=== PATIENT | female | born 1980 | race African-American/Black ===

== ENCOUNTER 2016-10-11 09:25 | Emergency (ER) | payer BC, OTHER ==
[2016-10-11 09:45] VITALS: BP 118/72; PULSE 70; TEMP 98.3; BMI 26.5
--- NOTE | 2016-10-11 10:30 | PDOC ---
History of Present Illness - General Chief Complaint: Lightheaded Stated Complaint: DIZZINESS Time Seen by Provider: 10/11/16 09:52 History Source: Patient Exam Limitations: No Limitations - History of Present Illness Initial Comments: 10/11/16 10:25 This patient is a 35-year-old female who presents to the emergency department with a complaint of dizziness. Patient states her symptoms began several days ago. She noticed that if she gets up too fast she feels dizzy. Today while at work she felt like she was going to pass out. She denies fevers or chills. She denies nausea, vomiting, diarrhea. She denies chest pain or palpitation. She denies head trauma. Patient denies headache. She of her ear. She was seen by her primary care physician who referred her to a specialist. Patient has not followed up with a specialist. She has no known history of anemia. She may have seasonal allergies, she has noted cough, itchiness, eye itching particularly when she goes outside PMH: denies PSH: Denies Meds: denies ALL: NKDA Social: denies alcohol, drug, cigarettes GENERAL/CONSTITUTIONAL: No: fever, chills, weakness, loss of appetite. HEAD, EYES, EARS, NOSE AND THROAT: No: change in vision, ear pain, discharge, sore throat, throat swelling. CARDIOVASCULAR: No: chest pain, lightheadedness, palpitations, syncope RESPIRATORY: No: cough, shortness of breath, wheezing, hemoptysis, stridor. GASTROINTESTINAL: No: nausea, vomiting, diarrhea, abdominal cramping, rectal bleeding, constipation. GENITOURINARY: No: dysuria, hematuria, frequency, urgency, flank pain. MUSCULOSKELETAL: No: back pain, neck pain, joint pain, muscle swelling or pain SKIN AND BREASTS: No: lesions, pallor, rash or easy bruising. NEUROLOGIC: No: headache, vertigo, paresthesias, weakness ENDOCRINE: No: unexplained weight gain or loss HEMATOLOGIC/LYMPHATIC: No: anemia, easy bleeding, swelling nodes. GENERAL: The patient is in no acute distress. HEAD: Normal with no signs of trauma. EYES: PERRLA, EOMI, sclera anicteric, conjunctiva clear. ENT: Ears normal, nares patent, oropharynx clear without exudates. Moist mucous membranes. NECK: Normal range of motion, supple without lymphadenopathy, JVD, or masses. LUNGS: Breath sounds equal, clear to auscultation bilaterally. No wheezes, and no crackles. HEART:Regular rate and rhythm, normal S1 and S2 without murmur, rub or gallop. ABDOMEN: Soft, nontender, normoactive bowel sounds. No guarding, no rebound. No masses palpable. EXTREMITIES: Normal range of motion, no edema. No clubbing or cyanosis. No erythema, or tenderness. NEUROLOGICAL: Cranial nerves II through XII grossly intact. Normal speech. No focal neurological deficits. No nystagmus MUSCULOSKELETAL: Back non-tender to palpation, no CVA tenderness SKIN: Warm, Dry, normal turgor, no rashes or lesions noted. Past History - Past Medical History Allergies/Adverse Reactions: Allergies Allergy/AdvReac Type Severity Reaction Status Date / Time No Known Allergies Allergy Verified 10/11/16 09:40 Home Medications: Ambulatory Orders NK [No Known Home Medication] 05/18/14 Thyroid Disease: No - Reproductive History (#): 5 Para: 3 Cervical CA: No Dysfunctional Uterine Bleeding: No Ectopic : No Endometrial CA: No Polycystic Ovaries: No Tubal Ligation: No Spontaneous : 1 - Psycho/Social/Smoking Cessation Hx Anxiety: No Suicidal Ideation: No Smoking History: Current some day smoker Have you smoked in the past 12 months: Yes Number of Cigarettes Smoked Daily: 1 Information on smoking cessation initiated: Yes 'Breaking Loose' booklet given: 12/02/15 Hx Alcohol Use: Yes (OCCASIONAL) Drug/Substance Use Hx: Yes (MARIJUANA) Substance Use Type: Alcohol, Marijuana *Physical Exam - Vital Signs Last Vital Signs Temp Pulse Resp BP Pulse Ox 98.3 F 70 15 118/72 99 10/11/16 09:38 10/11/16 09:38 10/11/16 09:38 10/11/16 09:38 10/11/16 09:38 Heart Score/ECG Review #1 ECG reviewed & interpreted by me at: 19:10 10/11/16 19:10 Twelve-lead EKG was performed and reviewed by me. There is normal sinus rhythm with a bradycardiac rate of 55bpm. The axis is normal. The intervals are normal. T wave inversion III, flattening aVF ED Treatment Course - LABORATORY CBC & Chemistry Diagram: 10/11/16 10:45 10/11/16 10:45 Medical Decision Making - Medical Decision Making 10/11/16 10:30 Dizziness: Anemia, orthostatic hypotension/dizziness, vertigo Reassess. I have discussed with patient strategies for changing her position which involves slowly changing position 10/11/16 11:49 Laboratory Tests 10/11/16 10/11/16 10:30 10:45 WBC 3.3 L D Hgb 14.1 Hct 41.5 Plt Count 271 D Urine HCG, Qual Negative 10/11/16 12:14 Laboratory Tests 10/11/16 10:45 Sodium 138 Potassium 3.2 L Chloride 103 Carbon Dioxide 29 H Anion Gap 6 L BUN 5 L D Creatinine 0.7 Random Glucose 79 10/11/16 12:53 Laboratory Tests 10/11/16 10:45 Troponin I < 0.03 L Clinical impression: Dizziness Orthostatic *DC/Admit/Observation/Transfer Diagnosis at time of Disposition: Orthostatic dizziness - Discharge Dispostion Disposition: HOME Condition at time of disposition: Stable Admit: No - Referrals Referrals: Candace Collier MD [Primary Care Provider] - - Patient Instructions Printed Discharge Instructions: Dizziness, Nonvertigo, DI for Dizziness- Nonvertigo, DI for Orthostatic Hypotension Additional Instructions: Thank you for coming in to the ER today Please review your labs Please follow up with your primary care physician Please also be sure to follow up with the ENT specialist as we discussed Please return to the ER for any other concerns or complaints - Post Discharge Activity Work/School Note: Back to Work
[2016-10-11 11:14] LABS: BASOPHIL 1.7 % (0-2.0); MCH 32.2 pg (25.7-33.7); MEAN CELL VOLUME 94.6 fl (80-96); MEAN PLT VOLUME 8.9 fl (7.5-11.1); NEUTROPHILS 31.7 % (42.8-82.8); PLATELET COUNT 271 K/MM3 (134-434); RDW 12.4 % (11.6-15.6); WHITE BLOOD COUNT 3.3 K/mm3 (4.0-10.8)
[2016-10-11 11:46] LABS: CPK(DFH) 96 IU/L (26-140)
[2016-10-11 11:47] LABS: ALBUMIN 3.6 g/dl (3.5-5.0); ALK PHOS 39 U/L (32-92); ANION GAP 6 (8-16); BILIRUBIN,TOTAL 1.1 mg/dl (0.2-1.0); CALCIUM 9.1 mg/dl (8.4-10.2); CO2 29 mmol/L (22-28); CREATININE 0.7 mg/dl (0.6-1.3); GLUCOSE,RANDOM 79 mg/dl (74-106); SGOT/AST 14 U/L (10-42); TOT PROT 6.9 g/dl (6.4-8.3)
[2016-10-11 12:25] LABS: SGPT/ALT < 9 U/L (10-40)
[2016-10-11 12:30] LABS: TROPONIN I (DFP) < 0.03 ng/ml (0.03-0.50)
--- NOTE | 2016-10-12 11:55 | EKG ---
Test Reason : Blood Pressure : / mmHG Vent. Rate : 055 BPM Atrial Rate : 055 BPM P-R Int : 162 ms QRS Dur : 082 ms QT Int : 414 ms P-R-T Axes : 035 053 -18 degrees QTc Int : 396 ms SINUS BRADYCARDIA NONSPECIFIC T WAVE ABNORMALITY ABNORMAL ECG WHEN COMPARED WITH ECG OF 02-MAR-2014 16:56, NO SIGNIFICANT CHANGE WAS FOUND Confirmed by KOBE LOUIE, DONALD ([id number]) on 10/12/2016 11:54:45 AM Referred By: PRABHU Confirmed By:DONALD BULLOCK MD
== END 2016-10-11 12:53 | disposition home or self-care (01) ==
LOC: FER 09:25
DX: R42 Dizziness and giddiness (principal); F17.210 Nicotine dependence, cigarettes, uncomplicated
CPT/HCPCS: 36415; 80053; 82550; 84484; 84703; 85025; 93005; 99282-25

== ENCOUNTER 2017-01-04 12:44 | Emergency (ER) | payer OTHER ==
[2017-01-04 12:58] VITALS: TEMP 98.8; BMI 27.4
[2017-01-04] MEDS ORDERED: SODIUM CHLORIDE 1,000 ML IV ONE (13:01)
[2017-01-04] MEDS ORDERED: KETOROLAC TROMETHAMINE 30 MG/1 ML VIAL IVPUSH ONE (13:01)
[2017-01-04 13:05] LABS: PH,URINE 7.5 (4.5-8); URINE APPEARANCE Clear; URINE BILIRUBIN Negative (NEGATIVE); URINE BLOOD Negative (NEGATIVE); URINE COLOR YELLOW; URINE GLUCOSE (UA) Negative (NEGATIVE); URINE KETONE Negative (NEGATIVE); URINE LEUK ESTERASE Negative (NEGATIVE); URINE NITRITE Negative (NEGATIVE); URINE PROTEIN Negative (NEGATIVE)
--- NOTE | 2017-01-04 13:09 | PDOC ---
History of Present Illness - General Chief Complaint: Pain, Acute Stated Complaint: RIGHT GROIN LOWER QUADRANT PAIN FOR 3 DAYS Time Seen by Provider: 01/04/17 12:48 History Source: Patient Exam Limitations: No Limitations - History of Present Illness Travel History: No Initial Comments: 01/04/17 13:04 36y F no pmhx presents wiht complaint of RLQ pain. The pt states she was having intermittent RLQ for the past 3 days, was mild at first, and intermittent, cramping, non radiating, she thought there was some association to movement as she would feel it when she sat down. She denies any fever/chills, nausea/ vomiting, diarrhea, dysuria, vaginal bleeding, frequency. She notes her urine seems darker than usual. Pt denies ever feeling these sypmtoms in the past. No recent injuries, heavy lifting. LMP early Aug Past History - Past Medical History Allergies/Adverse Reactions: Allergies Allergy/AdvReac Type Severity Reaction Status Date / Time No Known Allergies Allergy Verified 01/04/17 12:45 Home Medications: Ambulatory Orders NK [No Known Home Medication] 01/04/17 Thyroid Disease: No - Reproductive History (#): 5 Para: 3 Cervical CA: No Dysfunctional Uterine Bleeding: No Ectopic : No Endometrial CA: No Polycystic Ovaries: No Tubal Ligation: No Spontaneous : 1 - Psycho/Social/Smoking Cessation Hx Anxiety: No Suicidal Ideation: No Smoking History: Current some day smoker Have you smoked in the past 12 months: Yes Number of Cigarettes Smoked Daily: 1 Information on smoking cessation initiated: Yes 'Breaking Loose' booklet given: 01/04/17 Hx Alcohol Use: Yes Drug/Substance Use Hx: Yes (MARIJUANA) Substance Use Type: Alcohol, Marijuana Review of Systems - Review of Systems Able to Perform ROS?: Yes Comments:: 01/04/17 13:07 Constitutional - no reported Fever, Chills, HEENT: no reported vision changes, sore throat Respiratory: no reported cough, sob, hemoptysis Cardiac: no reported chest pain, palpitations, light headedness, leg swelling Abd/GI: +abd pain, no reported nausea, vomiting, blood per rectum, melena, diarrhea : no reported dysuria, frequency, discharge Musculskelatal - no reported back pain, joint swelling skin - no reported bruising, erythema, rash neurological: no reported headache, numbness, focal weakness, tingling, ataxia, hematologic: no reported anemia, easy bruising, easy bleeding *Physical Exam - Vital Signs Last Vital Signs Temp Pulse Resp BP Pulse Ox 98.8 F 73 16 113/68 100 01/04/17 12:45 01/04/17 12:45 01/04/17 12:45 01/04/17 12:45 01/04/17 12:45 - Physical Exam Comments: 01/04/17 13:09 GENERAL: The patient is awake, alert, and fully oriented, Nontoxic - in no acute distress. HEAD: Normocephalic, atraumatic. EYES: extraocular movements intact, sclera anicteric, conjunctiva clear. ENT: Normal voice, Moist mucous membranes. NECK: Normal range of motion, supple LUNGS: Breath sounds equal, clear to auscultation bilaterally. No wheezes, no rhonchi, no rales. HEART: Regular rate and rhythm, normal S1 and S2 without murmur, rub or gallop. ABDOMEN: Soft, nontender, normoactive bowel sounds. No guarding, no rebound. . No CVA tenderness EXTREMITIES: Normal range of motion, no edema. No clubbing or cyanosis. No cords, erythema, or tenderness. NEUROLOGICAL: No facial assymetry, Normal speech, PSYCH: Normal mood, normal affect. SKIN: Warm, Dry, normal turgor, ED Treatment Course - LABORATORY CBC & Chemistry Diagram: 01/04/17 13:10 01/04/17 13:10 Medical Decision Making - Medical Decision Making 01/04/17 13:09 36y F presenting with RLQ/R adnexal pain w/o associated n/v, diarrhea, urinary sypmtoms, f/c. on exam pt well appearing, abd is soft nontender, unable to reproduce the calvin using ambualtion, hip flexion suspect possible kdiney stone, ovarian cyst/torsion vs msk, /ectopic will ck ua, , cmp, cbc will give toradol will reassess 01/04/17 15:56 pts labs reviewed +UHCG, beta was 5100 US shows gestational sac with yolk sac w/o pole. there is signs of a mild diltation of right fallopian tube an d possible left, with small amount of free fluid the pt denies any pain currently, abd is soft nontender. will d/w dr. Hope, anticipate repeat hcg / US fu in 72 hrs 01/04/17 16:[address] Hope - states that as long as pt is asypmtomatic, she can follow up with her segment block layer in [facility] or return here for repeat HCG/US in 72 hrs. Pt is currently asypmtmoatic w/o pain return precautions were discussed I discussed the physical exam findings, ancillary test results and final diagnoses with the patient. I answered all of the patient's questions. The patient was satisfied with the care received and felt comfortable with the discharge plan and treatment plan. The patient will call their primary care physician within 24 hours to arrange follow-up and will return to the Emergency Department with any new, persistent or worsening symptoms. *DC/Admit/Observation/Transfer Diagnosis at time of Disposition: Abdominal pain affecting - Discharge Dispostion Disposition: HOME Condition at time of disposition: Improved Admit: No - Referrals Referrals: Thad Hope MD [Staff Physician] - - Patient Instructions Printed Discharge Instructions: DI for Abdominal Pain -- Early Additional Instructions: You have an early , we can see what looks like an early preganncy in your uterus. However there was some fullness noted by radiology on your R fallopian tube. Please return here or go see your segment block layer in 48-72 hrs to repeat your blood work and ultrasound. If you have any recurrent abdominal pain, vaginal bleeding, fever/chills, or any other concerns, return to the hospital immediately for reassessment. Take vitamins daily. Print Language: NEPALI
[2017-01-04] MEDS ORDERED: KETOROLAC TROMETHAMINE 30 MG/1 ML VIAL ONE (13:14)
[2017-01-04 13:26] LABS: EOSINOPHIL 0.9 % (0-4.5); MCH 32.1 pg (25.7-33.7); MCHC 33.6 g/dl (32.0-36.0); MEAN CELL VOLUME 95.6 fl (80-96); MEAN PLT VOLUME 8.9 fl (7.5-11.1); PLATELET COUNT 339 K/MM3 (134-434); RDW 12.6 % (11.6-15.6)
[2017-01-04 13:37] LABS: ALK PHOS 31 U/L (32-92); ANION GAP 1 (8-16); BILIRUBIN,TOTAL 0.8 mg/dl (0.2-1.0); CALCIUM 9.2 mg/dl (8.4-10.2); CO2 27 mmol/L (22-28); CREATININE 0.7 mg/dl (0.6-1.3); GLUCOSE,RANDOM 89 mg/dl (74-106); SGOT/AST 15 U/L (10-42); TOT PROT 7.4 g/dl (6.4-8.3)
[2017-01-04 14:11] LABS: SGPT/ALT < 8 U/L (10-40)
[2017-01-04 16:02] VITALS: BP 98/68; PULSE 68
== END 2017-01-04 16:14 | disposition home or self-care (01) ==
LOC: FER 12:44
PROC: 3E0333Z Introduction of Anti-inflammatory into Peripheral Vein, Percutaneous Approach (ICD-10-PCS; principal; 2017-01-04)
PROC: 3E0337Z Introduction of Electrolytic and Water Balance Substance into Peripheral Vein, Percutaneous Approach (ICD-10-PCS; 2017-01-04)
DX: O26.891 Other specified pregnancy related conditions, first trimester (principal); Z3A.01 Less than 8 weeks gestation of pregnancy; R10.31 Right lower quadrant pain
CPT/HCPCS: 36415; 76801-TC; 80053; 81003; 84702; 84703; 85025; 99282-25

== ENCOUNTER 2017-01-13 16:38 | Emergency (ER) | payer OTHER ==
[2017-01-13 17:16] VITALS: BP 112/66; PULSE 61; TEMP 98.6; BMI 27.4
--- NOTE | 2017-01-13 17:32 | PDOC ---
History of Present Illness - General History Source: Patient Exam Limitations: No Limitations - History of Present Illness Initial Comments: 01/13/17 18:01 The patient is a 36 year old female 5 weeks , with no significant past medical history, but was seen in the ER on 01/04/17 and was found to have an intrauterine less than 5 weeks without a pole identified and mild dilation of the right fallopian tube. The patient was told to follow up with OBGYN Dr. Sal in 42-72 hours for a repeat beta HCG and ultrasound. The patient has not followed up with Dr. Sal yet and came to the ER today as she has persistent pain.She reports some suprapubic pain that feels like menstrual cramping. She has no vaginal bleeding, but notes some white discharge. Denies dysuria, hematuria, and any other urinary changes. Denies fever, chills, nausea, vomiting. Allergies: none reported <Анна Zuniga - Last Filed: 01/13/17 19:26> <Matt Mar - Last Filed: 01/13/17 21:32> - General Chief Complaint: Revisit, Lab Variance Stated Complaint: REVISIT FOR US & LAB Time Seen by Provider: 01/13/17 17:31 Past History <Анна Zuniga - Last Filed: 01/13/17 19:26> - Past Medical History Thyroid Disease: No - Reproductive History Is Patient Now?: Yes (#): 5 Para: 3 Cervical CA: No Dysfunctional Uterine Bleeding: No Ectopic : No Endometrial CA: No Polycystic Ovaries: No Tubal Ligation: No Spontaneous : 1 - Psycho/Social/Smoking Cessation Hx Anxiety: No Suicidal Ideation: No Smoking History: Current some day smoker Have you smoked in the past 12 months: Yes Number of Cigarettes Smoked Daily: 1 Information on smoking cessation initiated: Yes 'Breaking Loose' booklet given: 01/04/17 Hx Alcohol Use: Yes Drug/Substance Use Hx: Yes Substance Use Type: Alcohol, Marijuana <Matt Mar - Last Filed: 01/13/17 21:32> - Past Medical History Allergies/Adverse Reactions: Allergies Allergy/AdvReac Type Severity Reaction Status Date / Time No Known Allergies Allergy Verified 01/04/17 12:45 Home Medications: Ambulatory Orders NK [No Known Home Medication] 01/04/17 Review of Systems - Review of Systems Able to Perform ROS?: Yes Comments:: 01/13/17 18:01 GENERAL/CONSTITUTIONAL: No fever or chills. No weakness. HEAD, EYES, EARS, NOSE AND THROAT: No change in vision. No ear pain or discharge. No sore throat. CARDIOVASCULAR: No chest pain or shortness of breath. RESPIRATORY: No cough, wheezing, or hemoptysis. GASTROINTESTINAL: +suprapubic cramping. No nausea, vomiting, diarrhea or constipation. GENITOURINARY: +white vaginal discharge. No dysuria, frequency, or change in urination. MUSCULOSKELETAL: No joint or muscle swelling or pain. No neck or back pain. SKIN: No rash NEUROLOGIC: No headache, vertigo, loss of consciousness, or change in strength/ sensation. ENDOCRINE: No increased thirst. No abnormal weight change. HEMATOLOGIC/LYMPHATIC: No anemia, easy bleeding, or history of blood clots. ALLERGIC/IMMUNOLOGIC: No hives or skin allergy. <Анна Zuniga - Last Filed: 01/13/17 19:26> *Physical Exam - Vital Signs Last Vital Signs Temp Pulse Resp BP Pulse Ox 98.6 F 61 16 112/66 96 01/13/17 16:41 01/13/17 16:41 01/13/17 16:41 01/13/17 16:41 01/13/17 16:41 - Physical Exam Comments: 01/13/17 18:01 GENERAL: Awake, alert, and fully oriented, in no acute distress HEAD: No signs of trauma EYES: PERRLA, EOMI, sclera anicteric, conjunctiva clear ENT: Auricles normal inspection, hearing grossly normal, nares patent, oropharynx clear without exudates. Moist mucosa NECK: Normal ROM, supple, no lymphadenopathy, JVD, or masses LUNGS: Breath sounds equal, clear to auscultation bilaterally. No wheezes, and no crackles HEART: Regular rate and rhythm, normal S1 and S2, no murmurs, rubs or gallops ABDOMEN: Soft, nontender, normoactive bowel sounds. No guarding, no rebound. No masses EXTREMITIES: Normal range of motion, no edema. No clubbing or cyanosis. No cords, erythema, or tenderness NEUROLOGICAL: Normal speech, cranial nerves intact, negative pronator drift, 5/ 5 strength in all 4 extremities, normal sensation to light touch in all 4 extremities, normal cerebellar exam, normal gait, normal reflexes and tone SKIN: Warm, Dry, normal turgor, no rashes or lesions noted. PRIVACY ANALYST: External genitalia with clitoral peircing, othewise wnl, Os closed, no CMT , mild midline ttp, no adnexal ttp. Scant clearish white discharge in vaginal vault. <Анна Zuniga - Last Filed: 01/13/17 19:26> - Vital Signs Last Vital Signs Temp Pulse Resp BP Pulse Ox 98.6 F 61 16 112/66 96 01/13/17 16:41 01/13/17 16:41 01/13/17 16:41 01/13/17 16:41 01/13/17 16:41 <Matt Mar - Last Filed: 01/13/17 21:32> ED Treatment Course - LABORATORY CBC & Chemistry Diagram: 01/13/17 18:10 01/13/17 18:10 - RADIOLOGY Radiograph Interpretation: 01/13/17 19:26 EXAM#: TYPE/EXAM: RESULT: [id number] US/TRANSVAGINAL US PREG Transvaginal obstetrical ultrasound Clinical information given: , no pole seen on last ultrasound The study was performed utilizing transvaginal and transabdominal scanning. In comparison to a previous ultrasound study of 01/04/2017 interval development of a single viable intrauterine gestation is noted at approximately 5 weeks 5 days on the basis of crown-rump length. Embryonic cardiac rate 134 BPM. No subchorionic implantation bleed is seen. Development of a 2.3 cm right ovarian cyst is noted. The left ovary appears unremarkable. No free intraperitoneal fluid is seen. There is no obvious adnexal pathology. Impression: A single viable intrauterine gestation is noted at approximately 5 weeks 5 days as discussed above. Development of a 2.3 cm right ovarian cyst is noted probably representing a corpus luteum. Mild dilatation of the right fallopian tube and possible mild dilatation of the left fallopian tube described on the previous exam is difficult to appreciate on the current study. Correlation with follow up sonography may be performed. Reported By: Edenilson Smith MD 01/13/17 [id number] <Анна Zuniga - Last Filed: 01/13/17 19:26> - LABORATORY CBC & Chemistry Diagram: 01/13/17 18:10 01/13/17 18:10 <Matt Mar - Last Filed: 01/13/17 21:32> Medical Decision Making - Medical Decision Making 01/13/17 19:25 36yo F five weeks presents for persistent suprapubic abd cramping after a recent ED TVUS did not show a pole. Exam with mild midline tenderness over the uterus but closed os and no blood in vaginal vault. Likely threatened Ab vs pain of normal . -labs -beta HCG quant -TVUS -reassess Pt signed out to Dr. Layton for further management. <Matt Mar - Last Filed: 01/13/17 21:32> *DC/Admit/Observation/Transfer - Attestations Scribe Attestion: 01/13/17 18:02 Documentation prepared by GITA Mera, acting as medical billing representative for Matt Mar MD. <Анна Zuniga - Last Filed: 01/13/17 19:26> - Discharge Dispostion Admit: No - Attestations Physician Attestion: 01/13/17 21:31 I, Dr. Matt Mar MD, attest that this document has been prepared under my direction and personally reviewed by me in its entirety. I further attest, that it accurately reflects all work, treatment, procedures and medical decision -making performed by me. <Matt Mar - Last Filed: 01/13/17 21:32> Diagnosis at time of Disposition: Threatened in early - Discharge Dispostion Disposition: HOME Condition at time of disposition: Stable - Referrals Referrals: Thad Hope MD [Primary Care Provider] - - Patient Instructions Additional Instructions: Your ultrasound showed a intrauterine . Your hormone is in the normal range for the gestational age of your . It is important that you follow-up with your OB if your symptoms persist or you develop any bleeding. Return to the emergency department immediately with ANY new, persistent or worsening symptoms. Continue any medications as previously prescribed by your physician. You should follow up with your primary doctor as soon as possible regarding today's emergency department visit. . Please make sure your doctor reviews the results of your emergency evaluation. Thank you for coming to the Emergency Department today for your care. It was a pleasure to see you today. Please note that your evaluation is INCOMPLETE until you follow-up with your doctor.
[2017-01-13 18:42] LABS: MCH 31.9 pg (25.7-33.7); MCHC 33.3 g/dl (32.0-36.0); MEAN CELL VOLUME 95.9 fl (80-96); MEAN PLT VOLUME 9.1 fl (7.5-11.1); PLATELET COUNT 266 K/MM3 (134-434); RDW 12.3 % (11.6-15.6); WHITE BLOOD COUNT 4.9 K/mm3 (4.0-10.8)
[2017-01-13 18:56] LABS: ALBUMIN 3.9 g/dl (3.5-5.0); ALK PHOS 32 U/L (32-92); ANION GAP 6 (8-16); BILIRUBIN,TOTAL 0.4 mg/dl (0.2-1.0); CALCIUM 8.9 mg/dl (8.4-10.2); CO2 26 mmol/L (22-28); CREATININE 0.6 mg/dl (0.6-1.3); GLUCOSE,RANDOM 85 mg/dl (74-106); SGOT/AST 14 U/L (10-42); SGPT/ALT 9 U/L (10-40)
[2017-01-13 20:32] LABS: HIV 1 & 2 AB NEGATIVE; HIV 1 AGp24 NEGATIVE
--- NOTE | 2017-01-13 20:57 | PDOC ---
*Physical Exam - Vital Signs Last Vital Signs Temp Pulse Resp BP Pulse Ox 98.6 F 61 16 112/66 96 01/13/17 16:41 01/13/17 16:41 01/13/17 16:41 01/13/17 16:41 01/13/17 16:41 ED Treatment Course - LABORATORY CBC & Chemistry Diagram: 01/13/17 18:10 01/13/17 18:10 - ADDITIONAL ORDERS Additional order review: Laboratory Results 01/13/17 01/13/17 18:10 18:10 Sodium 135 L Potassium 3.3 L Chloride 103 Carbon Dioxide 26 Anion Gap 6 L BUN 5 L Creatinine 0.6 Creat Clearance w eGFR > 60 Random Glucose 85 Calcium 8.9 Total Bilirubin 0.4 D AST 14 ALT 9 L Alkaline Phosphatase 32 Total Protein 7.0 Albumin 3.9 Beta HCG, Quant 68295.5 01/13/17 18:10 RBC 4.49 MCV 95.9 MCHC 33.3 RDW 12.3 MPV 9.1 Neutrophils % Y Lymphocytes % Y Progress Note - Progress Note Progress Note: Care of this patient was transferred to k[facility] from Dr. Stephens at 1900 hrs. Patient is a 36-year-old female who is having some abdominal cramping and pain. Patient was here a few days ago for similar symptoms and had a positive test and a ultrasound did not show an intrauterine gestation. Patient was told to follow-up with her OB but she did not so came back here because symptoms were persisting. Patient had no vaginal bleeding patient had an ultrasound here that showed an intrauterine gestation of 5 weeks and 5 days. And a beta hCG of 13,952. \ Patient was told to follow-up with her OB doctor and the was discharged. *DC/Admit/Observation/Transfer Diagnosis at time of Disposition: Threatened in early - Discharge Dispostion Disposition: HOME Condition at time of disposition: Good Admit: No - Referrals Referrals: Thad Hope MD [Primary Care Provider] - - Patient Instructions Additional Instructions: Your ultrasound showed a intrauterine . Your hormone is in the normal range for the gestational age of your . It is important that you follow-up with your OB if your symptoms persist or you develop any bleeding. Return to the emergency department immediately with ANY new, persistent or worsening symptoms. Continue any medications as previously prescribed by your physician. You should follow up with your primary doctor as soon as possible regarding today's emergency department visit. . Please make sure your doctor reviews the results of your emergency evaluation. Thank you for coming to the Emergency Department today for your care. It was a pleasure to see you today. Please note that your evaluation is INCOMPLETE until you follow-up with your doctor. - Post Discharge Activity
[2017-01-13 21:15] LABS: PLATELET ESTIMATE ADEQUATE (NORMAL)
== END 2017-01-13 21:05 | disposition home or self-care (01) ==
LOC: FER 16:38
DX: O26.891 Other specified pregnancy related conditions, first trimester (principal); F17.210 Nicotine dependence, cigarettes, uncomplicated; Z3A.01 Less than 8 weeks gestation of pregnancy
CPT/HCPCS: 36415; 76817-TC; 80053; 84702; 85025; 87389; 99282-25

== ENCOUNTER 2017-04-23 20:45 | Emergency (ER) | payer OTHER ==
[2017-04-23 21:01] VITALS: BP 120/81; TEMP 97.7; BMI 28.3
--- NOTE | 2017-04-23 21:41 | PDOC ---
History of Present Illness - General Chief Complaint: Back Pain Stated Complaint: FALL INJURY - History of Present Illness Initial Comments: 04/23/17 21:37 CHIEF COMPLAINT: back pain HISTORY OF PRESENT ILLNESS: 36 yo F with no significant PMH presents to [facility] [employer] with pain to mid back s/p fall. Patient reports she was "playing and fell and hit the middle of my back on the arm of a chair." Patient reports the pain is localized to the middle of her spine and is worse with movement. She denies LOC or injury to any other part of the body. No recent travel or sick contacts. PAST MEDICAL HISTORY: Denies past medical history FAMILY HISTORY: Denies SOCIAL HISTORY:Denies tobacco, alcohol, illicit drug use. SURGICAL HISTORY: Denies ALLERGIES: ibuprofen REVIEW OF SYSTEMS General/Constitutional: Denies fever or chills. Denies weakness,. HEENT: Denies change in vision. Denies ear pain or discharge. Denies sore throat. Cardiovascular: Denies chest pain or shortness of breath. Respiratory: Denies cough, wheezing, or hemoptysis. Gastrointestinal: Denies loss of bowel or bladder function. Genitourinary: Denies dysuria, frequency, or change in urination. Musculoskeletal: Mid back pain. Skin and breasts: Denies rash or easy bruising. Neurologic: Denies headache, vertigo, loss of consciousness, or loss of sensation. PHYSICAL EXAM General Appearance: Well-appearing, appropriately dressed. No apparent distress. HEENT: EOMI, PERRLA. No conjunctival pallor. No photophobia, scleral icterus. Respiratory/Chest: Lungs CTAB. Cardiovascular: RRR. S1, S2. Gastrointestinal/Abdominal: Normal bowel sounds. Abdomen soft, non-distended. No tenderness or rebound tenderness. No organomegaly, pulsatile mass, guarding , hernia, hepatomegaly, splenomegaly. Musculoskeletal/Extremities: Midline tenderness to thoracic spine and latissimus dorsi to b/l thoracic spine. Sensory discrimination intact to lower extremities. Patient ambulatory with normal gait. Normal inspection. FROM of all extremities, normal capillary refill. Pelvis Stable. No CVA tenderness. No tenderness to extremities, pedal edema, swelling, erythema or deformity. Integumentary: Appropriate color, dry, warm. No cyanosis, erythema, jaundice or rash Neurologic: firearms instructor II-XII intact. Fully oriented, alert. Appropriate mood/affect. Motor strength 5/5. No appreciable EOM palsy, facial droop or sensory deficit. 04/23/17 22:41 Past History - Past Medical History Allergies/Adverse Reactions: Allergies Allergy/AdvReac Type Severity Reaction Status Date / Time ibuprofen [From Motrin] Allergy Verified 03/25/17 15:23 Home Medications: Ambulatory Orders Acetaminophen [Tylenol -] 500 mg PO Q6H #16 tablet 04/23/17 Cyclobenzaprine HCl 7.5 mg PO HS PRN #7 tablet 04/23/17 COPD: No Thyroid Disease: No - Reproductive History (#): 5 Para: 3 Cervical CA: No Dysfunctional Uterine Bleeding: No Ectopic : No Endometrial CA: No Polycystic Ovaries: No Tubal Ligation: No Spontaneous : 1 - Suicide/Smoking/Psychosocial Hx Smoking History: Current some day smoker Have you smoked in the past 12 months: Yes Number of Cigarettes Smoked Daily: 1 Information on smoking cessation initiated: No 'Breaking Loose' booklet given: 01/04/17 Hx Alcohol Use: No Drug/Substance Use Hx: No Substance Use Type: Alcohol, Marijuana *Physical Exam - Vital Signs Last Vital Signs Temp Pulse Resp BP Pulse Ox 97.7 F 60 18 120/81 98 04/23/17 20:57 04/23/17 20:57 04/23/17 20:57 04/23/17 20:57 04/23/17 20:57 ED Treatment Course - RADIOLOGY Radiology Studies Ordered: Category Date Time Status SPINE-CERVICAL [RAD] Stat Radiology 04/23/17 21:36 Ordered SPINE-THORACIC [RAD] Stat Radiology 04/23/17 21:36 Ordered Medical Decision Making - Medical Decision Making 04/23/17 21:41 36 yo F with no significant PMH presents to [facility] with pain to mid back s/ p fall. -upreg -cervical/thoracic spine x-ray -benadryl pretreatment for Toradol 04/23/17 22:30 Toradol given. X-ray wet read negative for fracture or misalignment. Likely muscle spasm. -Flexeril, Tylenol Advised patient to take medication as prescribed and follow up with orthopedics if pain persists past 5-7 days. Advised patient of signs and symptoms for return to ED. Patient verbalized understanding and agrees to plan. *DC/Admit/Observation/Transfer Diagnosis at time of Disposition: Mid back pain - Discharge Dispostion Disposition: HOME Condition at time of disposition: Stable Admit: No - Prescriptions Prescriptions: Acetaminophen [Tylenol -] 500 mg PO Q6H #16 tablet Cyclobenzaprine HCl 7.5 mg PO HS PRN #7 tablet PRN Reason: Back Pain - Referrals Referrals: Ibrahima Gaytan MD [Staff Physician] - - Patient Instructions Printed Discharge Instructions: DI for Muscle Strain, DI for Thoracic Back Pain Additional Instructions: Please take medication as prescribed; do NOT drive, drink alcohol, or operate machinery while taking cyclobenzaprine (Flexeril). As discussed, if your symptoms do not improve in 5-7 days, please follow up with an orthopedics for further evaluation and possible physical therapy, CT scan, or MRI. If you experience any loss of sensation to your extremities, any loss of bowel or bladder function, any swelling or increased pain to your leg, please return to the ER. - Post Discharge Activity Forms/Work/School Notes: Back to Work
[2017-04-23] MEDS ORDERED: diphenhydrAMINE HCL 25 MG CAPSULE (FP) PO ONE (21:43)
[2017-04-23] MEDS ORDERED: KETOROLAC TROMETHAMINE 60 MG/2 ML VIAL IM ONE (22:08)
[2017-04-23] MEDS ORDERED: KETOROLAC TROMETHAMINE 30 MG/1 ML VIAL ONE (22:09)
[2017-04-23 23:12] VITALS: PULSE 67
--- NOTE | 2017-04-24 07:59 | PDOC ---
Patient Follow-up (Call Back) - Post ED Follow - Up Condition at time of discharge: Stable Disposition at time of original discharge: HOME Reason for Call Back: Radiology (Limited imaging of odontoid on cervical xray per radiology Of note, pt p/w mid upper back pain Called to see how pt was feeling and unable to leave message Will print out xray results for subsequent ramon backs)
--- NOTE | 2017-04-25 07:59 | PDOC ---
Patient Follow-up (Call Back) - Post ED Follow - Up Condition at time of discharge: Stable Disposition at time of original discharge: HOME Reason for Call Back: Radiology (Unable to leave message on phone)
== END 2017-04-23 22:57 | disposition home or self-care (01) ==
LOC: JERFT 20:45
DX: S29.8XXA Other specified injuries of thorax, initial encounter (principal); W01.190A Fall on same level from slipping, tripping and stumbling with subsequent striking against furniture, initial encounter; Y93.89 Activity, other specified; Y92.038 Other place in apartment as the place of occurrence of the external cause
CPT/HCPCS: 72050-TC; 72070-TC; 84703; 99281-25

== ENCOUNTER 2017-10-27 15:59 | Emergency (ER) | payer OTHER ==
[2017-10-27 16:13] VITALS: BP 140/94; PULSE 68; TEMP 98.8; BMI 30.5
--- NOTE | 2017-10-27 17:26 | PDOC ---
History of Present Illness <Pop Cardona S - Last Filed: 10/27/17 18:59> - General History Source: Patient (The patient is a 36 year old female , with no significant PMH, who presents to the emergency department complaining of suprapubic pain and vaginal bleeding for approx one week. The patient states she was seen at [facility] 1 week ago and given an pill. The patient states she was 7 weeks at that time via ultrasound. The patient states since taking the pill she has experienced vaginal bleeding and suprapubic cramping/ pain. The patient also endorses intermittent headaches and chills. The patient states she follows with [facility] Dr. Weaver in [facility] but has not visited her [facility] [employer] [facility] since taking the pill.) Exam Limitations: No Limitations <Vinay Byrne - Last Filed: 10/27/17 19:03> - General Chief Complaint: Vaginal Bleeding Stated Complaint: bleeding/cramps s/p abor Time Seen by Provider: 10/27/17 17:06 Past History - Past Medical History CVA: No COPD: No Thyroid Disease: No - Reproductive History Is Patient Now?: (took pill week ago) (#): 5 Para: 3 Cervical CA: No Dysfunctional Uterine Bleeding: No Ectopic : No Endometrial CA: No Polycystic Ovaries: No Therapeutic (s) & number: Yes (2) Tubal Ligation: No Spontaneous : 1 - Suicide/Smoking/Psychosocial Hx Smoking History: Former smoker Have you smoked in the past 12 months: Yes Number of Cigarettes Smoked Daily: 1 Information on smoking cessation initiated: No 'Breaking Loose' booklet given: 01/04/17 Hx Alcohol Use: Yes Drug/Substance Use Hx: No Substance Use Type: Alcohol <Pop Cardona S - Last Filed: 10/27/17 18:59> <Vinay Byrne - Last Filed: 10/27/17 19:03> - Past Medical History Allergies/Adverse Reactions: Allergies Allergy/AdvReac Type Severity Reaction Status Date / Time ibuprofen [From Motrin] Allergy Verified 10/27/17 16:00 Home Medications: Ambulatory Orders Control 10/27/17 Review of Systems - Review of Systems Constitutional: Yes: Chills. No: Fever, Weakness HEENTM: No: Blurred Vision, Double Vision, Nose Congestion, Throat Pain, Difficulty Swallowing Respiratory: No: Cough, Shortness of Breath, Wheezing Cardiac (ROS): No: Chest Pain, Edema, Lightheadedness, Palpitations, Syncope ABD/GI: Yes: Other (+Suprapubic tenderness. +Vaginal bleeding. ). No: Constipated, Diarrhea, Nausea, Vomiting : No: Dysuria, Frequency, Flank Pain, Urgency Musculoskeletal: No: Back Pain, Neck Pain Integumentary: No: Rash, Sweating Neurological: Yes: Headache. No: Numbness, Tingling, Weakness, Dizziness Psychiatric: No: Anxiety, Depression Endocrine: No: Intolerance to Cold, Intolerance to Heat, Unexplained Weight Gain , Unexplained Weight Loss Hematologic/Lymphatic: No: Anemia, Blood Clots <Vinay Byrne - Last Filed: 10/27/17 19:03> *Physical Exam - Vital Signs Last Vital Signs Temp Pulse Resp BP Pulse Ox 98.8 F 68 18 140/94 99 10/27/17 16:00 10/27/17 16:00 10/27/17 16:00 10/27/17 16:00 10/27/17 16:00 <Pop Cardona S - Last Filed: 10/27/17 18:59> - Vital Signs Last Vital Signs Temp Pulse Resp BP Pulse Ox 98.8 F 68 18 140/94 99 10/27/17 16:00 10/27/17 16:00 10/27/17 16:00 10/27/17 16:00 10/27/17 16:00 - Physical Exam General Appearance: Yes: Appropriately Dressed. No: Apparent Distress HEENT: positive: RIDGE, Normal ENT Inspection, Normal Voice, Symmetrical, TMs Normal, Pharynx Normal Neck: positive: Trachea midline, Supple. negative: Tender Respiratory/Chest: positive: Lungs Clear, Normal Breath Sounds. negative: Respiratory Distress Cardiovascular: positive: Regular Rhythm, Regular Rate Gastrointestinal/Abdominal: positive: Normal Bowel Sounds, Tender (+Suprapubic tenderness. ), Soft Lymphatic: negative: Adenopathy, Tenderness Musculoskeletal: positive: Normal Inspection. negative: CVA Tenderness Extremity: positive: Normal Inspection, Normal Range of Motion Integumentary: positive: Normal Color, Dry, Warm Neurologic: positive: cleaner housekeeping II-XII NML intact, Fully Oriented, Alert, Normal Mood/ Affect, Normal Response, Motor Strength 5/5 <Vinay Byrne - Last Filed: 10/27/17 19:03> ED Treatment Course - LABORATORY CBC & Chemistry Diagram: 10/27/17 17:30 <Pop Cardona - Last Filed: 10/27/17 18:59> - LABORATORY CBC & Chemistry Diagram: 10/27/17 17:30 - RADIOLOGY Radiograph Interpretation: 10/27/17 19:03 EXAM#: TYPE/EXAM: RESULT: [id number] US/PELVIS(OTHER) US Pelvis ultrasound Clinical information given: vaginal bleeding; patient took pill for aborting ? The exam was performed utilizing transabdominal scanning as requested. No intrauterine gestation or gestational sac is identified. A trace amount of fluid is noted within the endometrial canal. The endometrium is thickened measuring 2.7 cm. No free intraperitoneal fluid is seen. A 3 cm unilocular left ovarian cyst is noted. The right ovary demonstrates no discrete abnormality. No Doppler evidence of ovarian torsion, sensitivity 70%. There is no gross adnexal pathology. IMPRESSION: No intrauterine gestation is identified - ? due to recent , early , ectopic . The endometrium is thickened measuring 2.7 cm. 3 cm left ovarian cyst. Reported By: Edenilson Smith MD <Vinay Byrne - Last Filed: 10/27/17 19:03> *DC/Admit/Observation/Transfer - Discharge Dispostion Decision to Admit order: No <Pop Cardona - Last Filed: 10/27/17 18:59> - Attestations Scribe Attestion: 10/27/17 17:30 Documentation prepared by Vinay Byrne, acting as medical van driver for Pop Cardona MD. <Vinay Byrne - Last Filed: 10/27/17 19:03> Diagnosis at time of Disposition: Vaginal bleeding Ovarian cyst Qualifiers: Laterality: unspecified laterality Qualified Code(s): N83.209 - Unspecified ovarian cyst, unspecified side - Discharge Dispostion Disposition: HOME Condition at time of disposition: Stable - Referrals Referrals: Christianne Weaver [Non Staff, Medical] - - Patient Instructions Printed Discharge Instructions: DI for Vaginal Bleeding - Post Discharge Activity Forms/Work/School Notes: Back to Work
[2017-10-27 18:19] LABS: BASO % 1.2 % (0-2.0); HEMOGLOBIN 14.5 GM/dl (10.7-15.3); LYMPH % 33.8 % (8-40); MCH 31.7 pg (25.7-33.7); MCHC 33.7 g/dl (32.0-36.0); MEAN PLT VOLUME 8.7 fl (7.5-11.1); MONO % 8.3 % (3.8-10.2); NEUT % 55.7 % (42.8-82.8); PLATELET COUNT 286 K/MM3 (134-434); RBC 4.58 M/mm3 (3.60-5.2); RDW 12.2 % (11.6-15.6); WHITE BLOOD COUNT 5.9 K/mm3 (4.0-10.8)
[2017-10-27] MEDS ORDERED: ACETAMINOPHEN INJECTION 100 ML IVPB ONE (18:26)
[2017-10-27] MEDS ORDERED: ACETAMINOPHEN 1000 MG/100 ML VIAL (NON FORMULARY) IVPB ONE ×2 (18:31→18:35)
== END 2017-10-27 19:07 | disposition home or self-care (01) ==
LOC: FER 15:59
PROC: 3E033NZ Introduction of Analgesics, Hypnotics, Sedatives into Peripheral Vein, Percutaneous Approach (ICD-10-PCS; principal; 2017-10-27)
DX: N83.209 Unspecified ovarian cyst, unspecified side (principal); N93.9 Abnormal uterine and vaginal bleeding, unspecified
CPT/HCPCS: 36415; 76856-TC; 84702; 85025; 86850; 86900; 86901; 99282-25; J0131

== ENCOUNTER 2018-10-06 16:00 | Emergency (ER) | payer OTHER | END 2018-10-06 20:32 | disposition home or self-care (01) | LOC: JERFT 16:00 → JER 20:32 ==

== ENCOUNTER 2018-12-26 22:41 | Emergency (ER) | payer OTHER ==
[2018-12-26 22:47] VITALS: BP 133/85; PULSE 85; TEMP 98.3; BMI 27.4
--- NOTE | 2018-12-26 23:18 | PDOC ---
History of Present Illness - General Chief Complaint: Pain Stated Complaint: UPPER RIGHT ABD. PAIN Time Seen by Provider: 12/26/18 23:17 History Source: Patient - History of Present Illness Travel History: Yes Initial Comments: 12/27/18 02:02 38-year-old female complaining of nausea and vomiting with last 3 days. Now with right-sided abdominal paintoday. Patient reports that she took a dose of Tylenol 3 with no relief in pain. Patient denies nauseaat this time. Denies fevers/chills, pleuritic pain. Cough, URI symptoms. patient reports no bm 2 days. Patient has no past medical history. Past History - Past Medical History Allergies/Adverse Reactions: Allergies Allergy/AdvReac Type Severity Reaction Status Date / Time ibuprofen [From Motrin] Allergy Verified 10/06/18 16:03 Home Medications: Ambulatory Orders Control 10/27/17 Acetaminophen W/ Codeine #3 [Tylenol # 3 -] 1 tab PO Q6H PRN #7 tablet MDD 4 CVA: No COPD: No Thyroid Disease: No - Reproductive History (#): 5 Para: 3 Cervical CA: No Dysfunctional Uterine Bleeding: No Ectopic : No Endometrial CA: No Polycystic Ovaries: No Therapeutic (s) & number: Yes (2) Tubal Ligation: No Spontaneous : 1 - Immunization History Immunization Up to Date: Yes - Suicide/Smoking/Psychosocial Hx Smoking History: Never smoked Have you smoked in the past 12 months: Yes Number of Cigarettes Smoked Daily: 1 'Breaking Loose' booklet given: 01/04/17 Hx Alcohol Use: Yes Drug/Substance Use Hx: No Substance Use Type: Alcohol Review of Systems - Review of Systems Able to Perform ROS?: Yes Is the patient limited Belarusian proficient: No Constitutional: No: Symptoms Reported, See HPI, Chills, Diaphoresis, Fever, Loss of Appetite, Malaise, Night Sweats, Weakness, Weight Stable, Unintentional Wgt. Loss, Unexplained wgt Loss, Other *Physical Exam - Vital Signs Last Vital Signs Temp Pulse Resp BP Pulse Ox 98.3 F 85 20 133/85 99 12/26/18 22:43 12/26/18 22:43 12/26/18 22:43 12/26/18 22:43 12/26/18 22:43 - Physical Exam General Appearance: Yes: Appropriately Dressed Respiratory/Chest: positive: Lungs Clear, Normal Breath Sounds Cardiovascular: positive: Regular Rhythm, Regular Rate Gastrointestinal/Abdominal: positive: Normal Bowel Sounds, Tender (RUQ and RLQ pain on plapation), Soft Musculoskeletal: positive: Normal Inspection. negative: CVA Tenderness Extremity: positive: Normal Capillary Refill, Normal Inspection ED Treatment Course - LABORATORY CBC & Chemistry Diagram: 12/26/18 23:47 12/26/18 23:47 Progress Note - Progress Note Progress Note: A: abdominal pain p: cBC cMP Lipase uA urine culture urine Abdominal ultrasound CAT scan abdomen and pelvis Medical Decision Making - Medical Decision Making 12/27/18 02:00 abdominal US: No cholelithiasis or cholecystitis. Liver appears unremarkable. Pancreatic head appears unremarkable. Pancreatic tail obscured by bowel gas. Common bile duct has a normal 3 mm diameter. No right kidney nephrolithiasis or hydronephrosis. Aorta and inferior vena cava and main portal vein are patent. 12/27/18 02:59 CT:Constipation with diverticulosis without diverticulitis. Left ovary 3 cm cystic process. Right ovary nonspecific 3 cm complex cystic process or mass. If clinically indicated recommend correlation with a Pelvic Ultrasound. *DC/Admit/Observation/Transfer Diagnosis at time of Disposition: Right ovarian cyst Abdominal pain Qualifiers: Abdominal location: right lower quadrant Qualified Code(s): R10.31 - Right lower quadrant pain Ovarian cyst Qualifiers: Laterality: bilateral Qualified Code(s): N83.201 - Unspecified ovarian cyst, right side; N83.202 - Unspecified ovarian cyst, left side Constipation Qualifiers: Constipation type: unspecified constipation type Qualified Code(s): K59.00 - Constipation, unspecified - Discharge Dispostion Disposition: HOME - Prescriptions Prescriptions: Acetaminophen W/ Codeine #3 [Tylenol # 3 -] 1 tab PO Q6H PRN #7 tablet MDD 4 PRN Reason: Pain - Referrals Referrals: Candace Collier MD [Primary Care Provider] - Daphne San MD [Staff Physician] - Thad Hope MD [Staff Physician] - - Patient Instructions Printed Discharge Instructions: Ovarian Cyst Additional Instructions: take tylenol # 3 for pain. 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 return to the ER for worsening pain - Post Discharge Activity Forms/Work/School Notes: Back to Work
[2018-12-26] MEDS ORDERED: SODIUM CHLORIDE 1,000 ML IV STA (23:24)
[2018-12-27] MEDS ORDERED: morphine CARPU-JECT 2 MG/1 ML DISP.SYRIN IVPUSH ONE (00:04)
[2018-12-27 00:06] LABS: HEMATOCRIT 38.8 % (32.4-45.2); LYMPH % 53.8 % (8-40); RBC 4.03 M/mm3 (3.60-5.2)
[2018-12-27 00:30] LABS: ALBUMIN 3.7 g/dl (3.4-5.0); BILIRUBIN,TOTAL 0.3 mg/dL (0.2-1); BLOOD UREA NITROGEN 6.5 mg/dL (7-18); CREATININE 0.8 mg/dL (0.55-1.3); POTASSIUM 3.3 mmol/L (3.5-5.1); TOT PROT 7.6 g/dl (6.4-8.2)
[2018-12-27] MEDS ORDERED: MORPHINE SULFATE 2 MG/ML VIAL ONE (00:44)
[2018-12-27 00:45] LABS: BASO % 1.2 % (0-2.0); EOS % 1.4 % (0-4.5); MCH 32.2 pg (25.7-33.7); MCHC 33.5 g/dl (32.0-36.0); MEAN CELL VOLUME 96.2 fl (80-96); MEAN PLT VOLUME 9.2 fl (7.5-11.1); MONO % 20.6 % (3.8-10.2); PLATELET COUNT 239 K/MM3 (134-434); WHITE BLOOD COUNT 3.6 K/mm3 (4.0-10.0)
[2018-12-27 00:49] LABS: EPI CELLS 4.8 /HPF (0-5/HPF); HYALINE CASTS 3 /lpf (0-8); URINE APPEARANCE CLEAR; URINE BILIRUBIN NEGATIVE (NEGATIVE); URINE COLOR ORANGE; URINE GLUCOSE (UA) NEGATIVE (NEGATIVE); URINE KETONE NEGATIVE (NEGATIVE); URINE LEUK ESTERASE NEGATIVE (NEGATIVE); URINE NITRITE NEGATIVE (NEGATIVE); URINE PROTEIN NEGATIVE (NEGATIVE); URINE WBC 2 /hpf (0-5); YEAST REVIEW (NEGATIVE)
[2018-12-27 02:10] LABS: URINE RBC MANY /hpf (0-4)
[2018-12-27] MEDS ORDERED: ACETAMINOPHEN WITH CODEINE 300MG/30MG TABLET PO ONE (03:03)
[2018-12-27] MEDS ORDERED: ACETAMINOPHEN WITH CODEINE 300MG/30MG TABLET ONE (03:27)
== END 2018-12-27 03:53 | disposition home or self-care (01) ==
LOC: JER 22:41
PROC: 3E033NZ Introduction of Analgesics, Hypnotics, Sedatives into Peripheral Vein, Percutaneous Approach (ICD-10-PCS; principal; 2018-12-26)
PROC: 3E0337Z Introduction of Electrolytic and Water Balance Substance into Peripheral Vein, Percutaneous Approach (ICD-10-PCS; 2018-12-26)
DX: N83.202 Unspecified ovarian cyst, left side (principal); N83.201 Unspecified ovarian cyst, right side; K59.00 Constipation, unspecified; R10.31 Right lower quadrant pain
CPT/HCPCS: 36415; 74177-TC; 76705-TC; 80053; 81003; 83690; 84703; 85025; 99283-25; J7030

== ENCOUNTER 2020-04-28 08:27 | Emergency (ER) | payer BC ==
[2020-04-28 08:41] VITALS: BP 128/85; PULSE 65; TEMP 96.6; BMI 28.3
== END 2020-04-28 09:19 | disposition home or self-care (01) ==
LOC: JER 08:27
DX: M94.0 Chondrocostal junction syndrome [Tietze] (principal)
CPT/HCPCS: 71046-TC-FY; 93005; 93010; 99284-25